=== PATIENT | female | born 1990 | race American Indian/Alaskan Native ===

== ENCOUNTER 2019-02-18 23:18 | Emergency (ER) | payer OTHER ==
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
[2019-02-19] MEDS ORDERED: TRIPLE ANTIBIOTIC TP ONE ×2 (04:24→04:26)
[2019-02-19 04:34] VITALS: BP 136/95
[2019-02-19] MEDS ORDERED: TRIPLE ANTIBIOTIC TP SCH (08:00)
== END 2019-02-19 04:33 | disposition home or self-care (01) ==
LOC: ED 23:18
DX: T22.00XA Burn of unspecified degree of shoulder and upper limb, except wrist and hand, unspecified site, initial encounter (principal); R10.2 Pelvic and perineal pain; M25.522 Pain in left elbow; F12.10 Cannabis abuse, uncomplicated; Z98.51 Tubal ligation status; V89.2XXA Person injured in unspecified motor-vehicle accident, traffic, initial encounter; W22.11XA Striking against or struck by driver side automobile airbag, initial encounter; Y93.89 Activity, other specified; Y92.488 Other paved roadways as the place of occurrence of the external cause; Y99.8 Other external cause status
CPT/HCPCS: 72190; A6250